=== PATIENT | female | born 1990 | race Caucasian/White ===

== ENCOUNTER 2017-04-15 05:30 | Inpatient (IN) | payer BC ==
[2017-04-17] MEDS ORDERED: MOTRIN-DPS800 MG PO (20:33)
[2017-04-17] MEDS ORDERED: PRENATAL VITAM1 EAC6 PO (20:33)
[2017-04-17] MEDS ORDERED: NIPPLECREAM TP (20:33)
--- NOTE | 2017-04-19 13:13 | OR ---
ADMIT: 04/15/2017 RM/LOC: 221 [facility] MR#: [id number] [facility] [address] [place] [id number] SAGE [address]UCHS [address] [place] [address] Operative/Delivery Room Report SEX: F AGE: 27 : 1990 SURGERY DATE: 04/15/2017 SURGEON: Evelia Bass MD PREOPERATIVE DIAGNOSES: 1. Intrauterine at 38 and 6/7 weeks gestation. 2. Active labor. 3. Group B streptococcus negative. POSTOPERATIVE DIAGNOSES: 1. Intrauterine at 38 and 6/7 weeks gestation. 2. Active labor. 3. Group B streptococcus negative. 4. Delivery of a viable male at 0934 hours, weighing 7 pounds 6.5 ounces with scores of 8 at 1 minute and 9 at 5 minutes. PROCEDURE: Spontaneous vaginal delivery with repair of right sided vaginal laceration extending into the right labia minora. ANESTHESIA: 1% lidocaine. COMPLICATIONS: None. ESTIMATED BLOOD LOSS: 300 mL. FLUIDS: Crystalloid. INDICATIONS: This is a 27-year-old female, 1, para 0, who [facility] with an intrauterine at 38 and 6/7 weeks gestation with complaints of spontaneous rupture of membranes. Her was complicated by history of a seizure disorder as well as history of asthma. At the time of initial evaluation, she was noted to be grossly ruptured. She was 4 cm dilated. She was admitted for labor. She progressed in a satisfactory fashion to be complete, at which time she was allowed to push bringing the infant's vertex to the perineum. PROCEDURE IN DETAIL: The patient was noted to be complete. She was placed in the dorsal lithotomy position, and prepped and draped in the usual sterile fashion. She was asked to push and delivered the 's vertex in the right occiput anterior position over the midline. Nuchal cord was checked, none was noted. The anterior shoulder delivered easily, followed by the posterior shoulder and remainder of the infant. The infant did have spontaneous cry and movement of all 4 extremities. He was passed to the mother's abdomen where nursing personnel were in attendance. 30 units of Pitocin were infused with IV fluids to help firm the uterus. After 1 minute, the cord was clamped x2 and cut by the father. Cord blood was obtained. The placenta delivered ADMIT: 04/15/2017 RM/LOC: 221 [facility] MR#: [id number] [address] [id number] [address] [address] [address] [place] [address] Operative/Delivery Room Report SEX: F AGE: 27 : 1990 intact spontaneously. The uterus was not explored. Examination of the cervix did not reveal any lacerations. She did have a right-sided vaginal laceration that extended out to the right labia minora. This was repaired using 3-0 Vicryl. I did do a running locking stitch vaginally and then did a subcuticular stitch of 3-0 Vicryl reapproximating the torn labia minora on the external surface. She did also have a small first-degree laceration just to the right of the midline at 7 o'clock. This was hemostatic and therefore, I did not repair this. She did have a left periurethral abrasion; again, this was hemostatic and did not require repair. The patient tolerated the procedure well. Sponge, needle, and instrument counts were correct. She is recovering in her Labor and Delivery suite with her infant. Evelia Bass MD/ berenice JOB #: [id number] CC: Shima Richardson, Attending Physician Evelia Bass, Family Physician
--- NOTE | 2017-04-19 13:16 | HP ---
ADMIT: 04/15/2017 RM/LOC: 221 [facility] MR#: [id number] [facility] [address] [place], [place] [id number] [address] [place] [address] History and Physical SEX: F AGE: 27 : 1990 DATE OF SERVICE: HISTORY OF PRESENT ILLNESS: The patient is a 27-year-old G1, P0, with intrauterine at 38 weeks and 6 days based on last menstrual period, who presents to Labor and Delivery with complaint of loss of fluid and contractions. Patient's cervix on presentation was 4 cm dilated. She was admitted for active labor. has been complicated by asthma and seizure disorder, however, neither required medication. PAST MEDICAL HISTORY: Asthma, seizure disorder, elevated blood pressure, and related nausea. MEDICATIONS: 1. Zofran. 2. vitamin. 3. Folic acid. ALLERGIES: LAMICTAL. 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 She denies any smoking, alcohol use, or drug use. She got this past November. LABS: GBS negative. She had abnormal 1 hour glucose tolerance test with a normal 3 hour glucose tolerance test. Hepatitis negative. RPR negative. Rubella immune. Gonorrhea and chlamydia negative. Blood type is O positive. HIV negative. OBJECTIVE: VITAL SIGNS: Blood pressure 122/66, pulse is 79, afebrile. GENERAL: She is in no acute distress. Alert and oriented x3. HEART: Regular rate and rhythm. No murmurs, rubs, or gallops. LUNGS: Clear to auscultation bilaterally. No wheezes or crackles. ABDOMEN: Gravid nontender. CERVICAL: On admission, 4 cm dilated, 80% effaced, -1 station. heart trace seen at baseline of 30 with moderate variability, positive accelerations, positive variable decelerations, possible late deceleration x1. Tocometry, hebr 2 to 3 minutes. LABORATORY DATA: White blood cell count 12.8, hemoglobin 12.8, platelets 255. ADMIT: 04/15/2017 RM/LOC: 221 [facility] MR#: [id number] [id number] [id number] [address] CORCOR[address] [place] [address] History and Physical SEX: F AGE: 27 : 1990 ASSESSMENT: The patient is a 27-year-old G1, P0, with intrauterine uterine at 38 weeks and 6 days based on last menstrual period, who presents to Labor and Delivery with spontaneous rupture of membranes and in active labor. PLAN: We will admit patient for Labor and Delivery. Consent obtained. The benefits, risks, and natural course of labor discussed by Dr. Bass. The patient does not desire epidural at this time. Cervix has since changed to 6 cm dilated. She is currently being positioned on her side due to category two heart tracing. We will continue labor and expected vaginal delivery. Julio C Sutherland MD Resident / Evelia Bass MD / berenice JOB #: [id number] CC: Shima Richardson, Attending Physician Evelia Bass, Family Physician
== END 2017-04-17 11:30 | disposition home or self-care (01) | DRG 775 ==
LOC: BC 05:30 → 2LDRP 05:30 → BC 04-23 12:22
PROVIDERS: ADMIT Obstetrics & Gynecology
PROC: 0UQMXZZ Repair Vulva, External Approach (ICD-10-PCS; principal; 2017-04-15)
PROC: 10E0XZZ Delivery of Products of Conception, External Approach (ICD-10-PCS; principal; 2017-04-15)
PROC: 3E0234Z Introduction of Serum, Toxoid and Vaccine into Muscle, Percutaneous Approach (ICD-10-PCS; 2017-04-17)
DX: O99.52 Diseases of the respiratory system complicating childbirth (principal); J45.909 Unspecified asthma, uncomplicated; O70.0 First degree perineal laceration during delivery; Z23 Encounter for immunization; Z3A.38 38 weeks gestation of pregnancy; Z37.0 Single live birth